=== PATIENT | male | born 1995 | race Caucasian/White ===

== ENCOUNTER 2018-12-12 09:37 | Emergency (ER) | payer OTHER ==
--- NOTE | 2018-12-12 09:49 | EDM.PDOC ---
ED HPI GENERAL MEDICAL PROBLEM - General Chief Complaint: Upper Extremity Injury/Pain Stated Complaint: INJURED LT HAND Time Seen by Provider: 12/12/18 09:42 Source of Information: Reports: Patient History Limitations: Reports: No Limitations - History of Present Illness INITIAL COMMENTS - FREE TEXT/NARRATIVE: History of present illness: []Patient slammed his left wrist in between a box and a freezer door p.m. last night Review of systems: As per history of present illness and below otherwise all systems reviewed and negative. Past medical history: As per history of present illness and as reviewed below otherwise noncontributory. Surgical history: As per history of present illness and as reviewed below otherwise noncontributory. Social history: No reported history of drug or alcohol abuse. Family history: As per history of present illness and as reviewed below otherwise noncontributory. Physical exam: General: Well developed, well nourished in NAD HEENT: Atraumatic, normocephalic, pupils reactive, negative for conjunctival pallor or scleral icterus, mucous membranes moist, throat clear, neck supple, nontender, trachea midline. Lungs: Clear to auscultation, breath sounds equal bilaterally, chest nontender. Heart: S1S2, regular, negative for clicks, rubs, or JVD. Abdomen: NABS, Soft, nondistended, nontender. Negative for masses or hepatosplenomegaly. Negative for costovertebral tenderness. Pelvis: Stable nontender. Genitourinary: Deferred. Rectal: Deferred. Extremities: Atraumatic, negative for cords or calf pain. Neurovascular unremarkable. Neuro: Awake, alert, oriented. Cranial nerves II through XII unremarkable. Cerebellum unremarkable. Motor and sensory unremarkable throughout. Exam nonfocal. Skin:warm and dry Diagnostics: X-ray negative for fracture Therapeutics: declined pain meds, wrist splint ED Course: Unremarkable Impression: Left wrist contusion Prescriptions: None Plan: Ice, elevate, ibuprofen or Tylenol for pain wear splint for comfort follow-up with primary care or return to ER if symptoms worsen or change. Definitive disposition and diagnosis as appropriate pending reevaluation and review of above. left wrist Pain Score (Numeric/FACES): 6 - Related Data Allergies Allergy/AdvReac Type Severity Reaction Status Date / Time No Known Allergies Allergy Verified 12/12/18 09:49 Home Meds: Home Meds . [No Known Home Meds] 12/12/18 [History] Review of Systems - Review of Systems Review Of Systems: ROS reveals no pertinent complaints other than HPI. ED EXAM, GENERAL - Physical Exam Exam: See Below (See history of present illness) Course - Vital Signs Last Recorded V/S: Last Vital Signs Temp 97.0 F 12/12/18 09:49 Pulse 88 12/12/18 09:49 Resp 18 12/12/18 09:49 BP 144/90 H 12/12/18 09:49 Pulse Ox 97 12/12/18 09:49 - Orders/Labs/Meds Orders: Active Orders 24 hr Category Date Time Status Forearm 2V Lt [CR] Stat Exams 12/12/18 09:47 Taken Departure - Departure Time of Disposition: 10:20 Disposition: Home, Self-Care 01 Condition: Good Clinical Impression: Contusion of left wrist Qualifiers: Encounter type: initial encounter Qualified Code(s): S60.212A - Contusion of left wrist, initial encounter - Discharge Information *PRESCRIPTION DRUG MONITORING PROGRAM REVIEWED*: No *COPY OF PRESCRIPTION DRUG MONITORING REPORT IN PATIENT SHAKEEL: No Referrals: PCP,None [Primary Care Provider] - Forms: ED Department Discharge Additional Instructions: The following information is given to patients seen in the emergency department who are being discharged to home. This information is to outline your options for follow-up care. We provide all patients seen in our emergency department with a follow-up referral. The need for follow-up, as well as the timing and circumstances, are variable depending upon the specifics of your emergency department visit. If you don't have a primary care physician on staff, we will provide you with a referral. We always advise you to contact your personal physician following an emergency department visit to inform them of the circumstance of the visit and for follow-up with them and/or the need for any referrals to a consulting specialist. The emergency department will also refer you to a specialist when appropriate. This referral assures that you have the opportunity for follow-up care with a specialist. All of these measure are taken in an effort to provide you with optimal care, which includes your follow-up. Under all circumstances we always encourage you to contact your private physician who remains a resource for coordinating your care. When calling for follow-up care, please make the office aware that this follow-up is from your recent emergency room visit. If for any reason you are refused follow-up, please contact the [facility] Emergency Department at and asked to speak to the emergency department charge nurse. Ice, elevate, ibuprofen or Tylenol for pain wear splint for comfort follow-up with primary care or return to ER if symptoms worsen or change. [facility] [address] [place] [id number] - My Orders Last 24 Hours: My Active Orders 12/12/18 09:47 Forearm 2V Lt [CR] Stat - Assessment/Plan Last 24 Hours: My Active Orders 12/12/18 09:47 Forearm 2V Lt [CR] Stat
--- NOTE | 2018-12-13 19:29 | CR ---
EXAM DATE: 12/12/18 PATIENT'S AGE: 23 Patient: BEV THURMAN Facility: [place], [place] Site . Site : 1995 Study: XRay Extremity Left forearm [id number]/13/2019 10:05:04 AM Ordering Physician: Bao Yanez Final Report: INDICATION: Pain since last night. Injury. TECHNIQUE: Left forearm 2 views. COMPARISON: None. FINDINGS: Two views of the left forearm demonstrate no fractures or focal osseous lesions. Alignment is normal. There are no soft tissue abnormalities. IMPRESSION: Negative left forearm. Dictated by Miguel Clarke MD @ Dec 12 2018 10:08AM (Electronic Signature) Report Signed by Proxy. SANJAY
== END 2018-12-12 10:30 | disposition home or self-care (01) ==
LOC: MW.ED 09:37
DX: S60.212A Contusion of left wrist, initial encounter (principal); W23.0XXA Caught, crushed, jammed, or pinched between moving objects, initial encounter
CPT/HCPCS: 73090-26-LT; 73090-LT; 99283

== ENCOUNTER 2019-02-27 15:28 | Emergency (ER) | payer SELFPAY ==
[2019-02-27] MEDS ORDERED: Ketorolac 60 MG/2 ML SDV IM ONE (15:45)
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
--- NOTE | 2019-02-27 16:30 | CT ---
INDICATION: Neck pain. TECHNIQUE: 2 mm axial imaging has been performed through the cervical spine. Sagittal and coronal reconstructions have been obtained. FINDINGS: No acute fracture is identified of the cervical spine. Intervertebral disc space are well maintained. The C1-2 vertebral bodies and odontoid demonstrate normal alignment. Skullbase demonstrates no visualized fracture. No central canal or neural foraminal stenosis is noted. The facets appear relatively well preserved. The soft tissues are unremarkable. IMPRESSION: No fracture or dislocation is identified of the cervical spine. No significant degenerative change is seen. Dictated by Hamlet Gutierrez MD @ 02/27/2019 4:29:43 PM Please note that all CT scans at this facility use dose modulation, iterative reconstruction, and/or weight-based dosing when appropriate to reduce radiation dose to as low as reasonably achievable. Dictated by: Hamlet Gutierrez MD @ 02/27/2019 16:29:46 (Electronically Signed)
== END 2019-02-27 17:37 | disposition home or self-care (01) ==
LOC: MW.ED 15:28
DX: M62.830 Muscle spasm of back (principal); M54.2 Cervicalgia; F17.210 Nicotine dependence, cigarettes, uncomplicated; Z79.899 Other long term (current) drug therapy
CPT/HCPCS: 72125; 96372; 99283; J1885

== ENCOUNTER 2019-04-05 22:25 | Emergency (ER) | payer BC ==
[2019-04-05] MEDS ORDERED: Ketorolac 60 MG/2 ML SDV IM ONE (22:38)
--- NOTE | 2019-04-05 22:42 | EDM.PDOC ---
ED HPI GENERAL MEDICAL PROBLEM - General Chief Complaint: Lower Extremity Injury/Pain Stated Complaint: RT FOOT HURTS Time Seen by Provider: 04/05/19 22:35 - History of Present Illness INITIAL COMMENTS - FREE TEXT/NARRATIVE: HISTORY AND PHYSICAL: History of present illness: The patient is a 23-year-old male who presents with pain on the sole of his right foot near his first toe that started 2 days ago when he landed on it funny while playing basketball. The patient says he did not roll his ankle nor did he fall to the ground but he landed on the ball of his foot ever since then he has had pain and swelling in this area. He says it hurts to bend his big toe. He has no proximal heel ankle leg knee or hip pain and no back pain. He has last used ibuprofen this morning and has been trying to place ice on it. He has a history of breaking a cuboid in the past as well as injuring his ankle. The patient admits that he has been ambulating on the foot. Review of systems: As per history of present illness and below otherwise all systems reviewed and negative. Past medical history: As per history of present illness and as reviewed below otherwise noncontributory. Surgical history: As per history of present illness and as reviewed below otherwise noncontributory. Social history: No reported history of drug or alcohol abuse. Family history: As per history of present illness and as reviewed below otherwise noncontributory. Physical exam: General: Well-developed well-nourished man who is nontoxic and vital signs are noted by me HEENT: Atraumatic, normocephalic, negative for conjunctival pallor or scleral icterus, mucous membranes moist, throat clear, neck supple, nontender, trachea midline. Lungs: Clear to auscultation, breath sounds equal bilaterally, chest nontender. Heart: S1S2, regular rate and rhythm no overt murmurs Abdomen: Soft, nondistended, nontender. NABS Pelvis: Stable nontender. No lateral hip tenderness on the right Genitourinary: Deferred. Rectal: Deferred. Extremities: Atraumatic with full range of motion of all extremities with the exception of the right foot where there is soft tissue swelling at the base of the first and second metatarsals as well as extending to the dorsal aspect of the foot. The proximal heel cuboids ankle are intact without tenderness defects or soft tissue swelling as are the toes distally. Pulses are intact and there is no ecchymosis. The arch of the foot appears to be nontender as do the lateral metatarsals. The legs are, negative for cords or calf pain. Neurovascular unremarkable. Neuro: Awake, alert, oriented. Cranial nerves II through XII unremarkable. Cerebellum unremarkable. Motor and sensory unremarkable throughout. Exam nonfocal. Diagnostics: X-ray right foot Therapeutics: Toradol IM, ice pack, crutches, orthopedic boot Impression: Right foot injury Definitive disposition and diagnosis as appropriate pending reevaluation and review of above. right foot Pain Score (Numeric/FACES): 8 - Related Data Allergies Allergy/AdvReac Type Severity Reaction Status Date / Time No Known Allergies Allergy Verified 04/05/19 22:42 Home Meds: Home Meds Escitalopram [Lexapro] 10 mg PO DAILY 04/05/19 [History] Past Medical History Musculoskeletal History: Reports: Back Pain, Chronic, Fracture, Other (See Below ) Other Musculoskeletal History: degenerative disc disease - Infectious Disease History Infectious Disease History: Reports: Chicken Pox Social & Family History - Family History Family Medical History: Noncontributory - Caffeine Use Caffeine Use: Reports: Energy Drinks Review of Systems - Review of Systems Review Of Systems: ROS reveals no pertinent complaints other than HPI. ED EXAM, GENERAL - Physical Exam Exam: See Below (See dictation) Course - Vital Signs Last Recorded V/S: Last Vital Signs Temp 36.3 C 04/05/19 22:33 Pulse 108 H 04/05/19 22:33 Resp 18 04/05/19 22:33 BP 139/87 04/05/19 22:33 Pulse Ox 95 04/05/19 22:33 - Orders/Labs/Meds Meds: Medications Discontinued Medications Generic Name Dose Route Start Last Admin Trade Name Freq PRN Reason Stop Dose Admin Ketorolac Tromethamine 60 mg 04/05/19 22:38 04/05/19 22:50 Toradol IM 04/05/19 22:39 60 mg ONETIME ONE Administration Departure - Departure Time of Disposition: 23:21 Disposition: Home, Self-Care 01 Condition: Good Clinical Impression: Right foot injury Qualifiers: Encounter type: initial encounter Qualified Code(s): S99.921A - Unspecified injury of right foot, initial encounter - Discharge Information Referrals: PCP,None [Primary Care Provider] - Forms: ED Department Discharge Additional Instructions: The following information is given to patients seen in the emergency department who are being discharged to home. This information is to outline your options for follow-up care. We provide all patients seen in our emergency department with a follow-up referral. The need for follow-up, as well as the timing and circumstances, are variable depending upon the specifics of your emergency department visit. If you don't have a primary care physician on staff, we will provide you with a referral. We always advise you to contact your personal physician following an emergency department visit to inform them of the circumstance of the visit and for follow-up with them and/or the need for any referrals to a consulting specialist. The emergency department will also refer you to a specialist when appropriate. This referral assures that you have the opportunity for followup care with a specialist. All of these measure are taken in an effort to provide you with optimal care, which includes your followup. Under all circumstances we always encourage you to contact your private physician who remains a resource for coordinating your care. When calling for followup care, please make the office aware that this follow-up is from your recent emergency room visit. If for any reason you are refused follow-up, please contact the [facility] emergency department at and ask to speak to the emergency department charge nurse. Dr Yesy Fisher [address] [place] [id number] [facility] Special[facility] clinic- Podiatry [address] [place] [id number] Fax: [phone] Ice and elevate the area as much as possible and wear the ortho boot but remove at sleep times and also use crutches. Please call and schedule a follow-up appointment with one of our plant specialist using resources given to above. Continue to use [id number] ibuprofen/Motrin and you may also add Tylenol for pain management. Return to ER as needed and as discussed
--- NOTE | 2019-04-05 23:14 | CR ---
INDICATION: Sports foot injury 2 days ago, pain near base of 1st digit TECHNIQUE: Foot radiograph 3 views right COMPARISON: None FINDINGS: Bone: No acute fractures or aggressive bone lesions are identified. Joint: The visualized hindfoot, midfoot, and forefoot joints are unremarkable in appearance. No significant ankle effusion is seen. Soft tissue: Unremarkable. No radiopaque foreign bodies are seen. IMPRESSION: 1. No acute osseous injuries or abnormalities are noted. Dictated by: Harvey Fonseca MD @ 04/05/2019 23:12:51 (Electronically Signed)
== END 2019-04-05 23:35 | disposition home or self-care (01) ==
LOC: MW.ED 22:25
DX: S99.921A Unspecified injury of right foot, initial encounter (principal); Z79.899 Other long term (current) drug therapy; X50.9XXA Other and unspecified overexertion or strenuous movements or postures, initial encounter; Y93.67 Activity, basketball
CPT/HCPCS: 73630; 96372; 99283; J1885

== ENCOUNTER 2022-04-06 00:03 | Emergency (ER) | payer BC, OTHER ==
[2022-04-06] MEDS ORDERED: Acetaminophen/oxyCODONE 325-5 MG Tab PO ONE (00:49)
== END 2022-04-06 01:51 | disposition home or self-care (01) ==
LOC: MW.ED 00:03
DX: S90.32XA Contusion of left foot, initial encounter (principal); W20.8XXA Other cause of strike by thrown, projected or falling object, initial encounter
CPT/HCPCS: 73620; 99283; A9270